=== PATIENT | female | born 1950 | race American Indian/Alaskan Native ===

== ENCOUNTER → 2016-12-26 | Outpatient (CLI) | payer MEDICARE ==
[2016-12-26 11:42] LABS: APPEARANCE,URINE SLIGHTLY CLOUDY; PROTEIN,URINE NEGATIVE (NEGATIVE)
[2016-12-26 11:43] LABS: BACTERIA,URINE FEW /HPF; KETONES,URINE NEGATIVE (NEGATIVE); LEUKOCYTE ESTERASE ,URINE 1+ (NEGATIVE); NITRITE,URINE NEGATIVE (NEGATIVE); RBC,URINE 0-2 /HPF (0 - 2); SQUAMOUS EPITHELIAL CELL,UR MODERATE /LPF (NONE/OCC); UROBILINOGEN,URINE NORMAL MG/DL (0.0-1.0)
[2016-12-26 11:44] LABS: BASOPHILS % (AUTO) 0.9 % (0.0-2.0); EOSINOPHILS % (AUTO) 0.9 % (0.0-3.0); HEMOGLOBIN A1C 5.2 % (< 6.0); LYMPHOCYTES % (AUTO) 23.7 % (20.0-45.0); MEAN CORPUSCULAR HEMOGLOBIN 30.2 PG (27.0-31.0); MEAN CORPUSCULAR HGB CONC 33.4 G/DL (32.0-36.0); MEAN CORPUSCULAR VOLUME 90 FL (80-99); MONOCYTES % (AUTO) 6.6 % (1.0-10.0); NEUTROPHILS % (AUTO) 67.9 % (45.0-75.0); PLATELET COUNT 285 K/UL (150-450); RED BLOOD COUNT 4.19 M/UL (4.20-5.40); RED CELL DISTRIBUTION WIDTH 12.2 % (11.6-14.8); WHITE BLOOD COUNT 8.7 K/UL (4.8-10.8)
[2016-12-26 11:52] LABS: ALANINE AMINOTRANSFERASE 9 U/L (3-33); ALBUMIN/GLOBULIN RATIO 1.1 (1.0-2.7); ANION GAP 15 (5-15); ASPARTATE AMINO TRANSFERASE 14 U/L (5-40); CALCIUM 9.6 mg/dL (8.6-10.2); CARBON DIOXIDE 25 mEQ/L (20-30); CHLORIDE 101 mEQ/L (98-107); CHOLESTEROL 171 mg/dL (< 200); CHOLESTEROL/HDL RATIO 2.2 (3.3-4.4); CREATININE 0.8 mg/dL (0.5-0.9); GLOMERULAR FILTRATION RATE > 60 mL/min (>60); HEMOLYSIS 3; LDL CHOLESTEROL (CALC.) 72 mg/dL (60-99); SODIUM 141 mEQ/L (135-145); TOTAL PROTEIN 7.9 g/dL (6.6-8.7)
== END | disposition home or self-care (01) ==
LOC: LAB 11:10
DX: I10 Essential (primary) hypertension (principal)
CPT/HCPCS: 36415; 80053; 80061; 81001; 83036; 84443; 85025

== ENCOUNTER 2019-04-08 08:34 | Day surgery (SDC) | payer MEDICARE ==
[2019-03-29 10:45] LABS: APPEARANCE,URINE CLEAR; BASOPHILS % (AUTO) 1.1 % (0.0-2.0); BILIRUBIN, URINE NEGATIVE (NEGATIVE); COLOR,URINE PALE YELLOW; EOSINOPHILS % (AUTO) 2.5 % (0.0-3.0); GLUCOSE, URINE (UA) NEGATIVE (NEGATIVE); HEMATOCRIT 38.6 % (37.0-47.0); HEMOGLOBIN 12.6 G/DL (12.0-16.0); KETONES,URINE NEGATIVE (NEGATIVE); LEUKOCYTE ESTERASE ,URINE 1+ (NEGATIVE); LYMPHOCYTES % (AUTO) 26.5 % (20.0-45.0); MEAN CORPUSCULAR VOLUME 90 FL (80-99); MONOCYTES % (AUTO) 8.2 % (1.0-10.0); NEUTROPHILS % (AUTO) 61.8 % (45.0-75.0); NITRITE,URINE NEGATIVE (NEGATIVE); PH,URINE 5 (4.5-8.0); PLATELET COUNT 267 K/UL (150-450); PROTEIN,URINE NEGATIVE (NEGATIVE); RED BLOOD COUNT 4.29 M/UL (4.20-5.40); RED CELL DISTRIBUTION WIDTH 12.6 % (11.6-14.8); UROBILINOGEN,URINE NORMAL MG/DL (0.0-1.0); WHITE BLOOD COUNT 6.5 K/UL (4.8-10.8)
[2019-03-29 10:57] LABS: ANION GAP 7 mmol/L (5-15); BLOOD UREA NITROGEN 24 mg/dL (7-18); CALCIUM 9.7 MG/DL (8.5-10.1); CARBON DIOXIDE 28 MMOL/L (21-32); CHLORIDE 106 MMOL/L (98-107); POTASSIUM 4.2 MMOL/L (3.5-5.1); SODIUM 141 MMOL/L (136-145)
--- NOTE | 2019-03-29 14:13 | Cardiology Report ---
APPROVED REPORT EKG Measurement Heart [id number] Sinus bradycardia Otherwise normal ECG
--- NOTE | 2019-04-05 17:30 | Pre-op HX & Phy Repo 2 SIG ---
DATE OF ADMISSION: 04/08/2019 SCHEDULED FOR OUTPATIENT SURGERY ON: 04/08/2019. HISTORY OF PRESENT ILLNESS: The patient is a 68-year-old female in stable health, who noticed a mass in the right breast in January of this year. Imaging studies showed a right breast mass with calcifications located in the lower outer quadrant at 8 o'clock, 6 cm from the nipple measuring 2.5 x 1.8 x 1.6 cm. Core biopsy revealed phyllodes tumor, borderline regarding benign versus malignant with the recommendation for excision with a wide margin. She has no prior history of breast disease. PAST MEDICAL HISTORY AND MEDICATIONS: Benazepril, spironolactone, diltiazem, all for hypertension, levothyroxine, and Singulair. ALLERGIES: Codeine. OPERATIONS: Cataract surgery. REVIEW OF SYSTEMS: 1, para 1. Last menstrual period at age 45. PHYSICAL EXAMINATION: VITAL SIGNS: The patient is 5 foot 3 inches, 215 pounds. HEENT: Within normal limits. LUNGS: Clear. HEART: Regular rhythm. BREASTS: Medium in size and ptotic. The left breast is unremarkable. The right breast has a mass measuring approximately 3 x 4 cm in the periphery of the lower outer quadrant of the right breast. There is no axillary, supraclavicular lymphadenopathy. ABDOMEN: Soft. PELVIC AND RECTAL: Per primary care. EXTREMITIES: Without edema. NEUROLOGIC: Physiologic. IMPRESSION: Right breast mass, phyllodes tumor, rule out malignant. PLAN: Wide excision of right breast mass under general anesthesia as an outpatient. I have had a full discussion with the patient regarding the nature of her condition, the nature of the surgery, indications, alternatives, options, and risks including bleeding, infection, recurrence, need for additional surgery or treatments based on final pathology, scarring or distortion of the breast or nipple, etc. All questions have been answered. She understands and agrees to proceed. Garcia Cruz M.D. DR: ISABELLE JOB#: [id number] CC:
[2019-04-08] VITALS (9 sets, daily range): BP systolic 116–152; BP diastolic 53–72
[~2019-04-08] VITALS: Ht 160 cm; Wt 94.8 kg
[2019-04-08] MEDS ORDERED: LEVOTHYROXINE75 MCG ORAL (09:00)
[2019-04-08] MEDS ORDERED: SPIRONOLACTONE25 MG ORAL (09:00)
[2019-04-08] MEDS ORDERED: CARTIA XT300 MG ORAL (09:00)
[2019-04-08] MEDS ORDERED: BENAZEPRIL HCL40 MG ORAL (09:00)
[2019-04-08] MEDS ORDERED: VITAMIN D22000 UNIT PO (09:00)
[2019-04-08] MEDS ORDERED: MONTELUKAST SOD10 MG ORAL (09:00)
[2019-04-08] MEDS ORDERED: Lidocaine 1% Plain 30 ml INJ ONE (09:06)
[2019-04-08] MEDS ORDERED: Bacitracin 50000 Units Vial ONE (09:06)
[2019-04-08] MEDS ORDERED: NeoSporin Gu Irrig 1ml Amp IRRIG ONE (09:06)
[2019-04-08] MEDS ORDERED: Bupivacaine 0.5% Inj 30 ml vial INJ ONE (09:06)
--- NOTE | 2019-04-08 09:07 | Pre-Procedure Note/Attestation ---
Pre-Procedure Note/Attestation Complete Prior to Procedure Planned Procedure: right Procedure Narrative: excision right breast mass Indications for Procedure Pre-Operative Diagnosis: right breast mass Attestation I attest that I discussed the nature of the procedure; its benefits; risks and complications; and alternatives (and the risks and benefits of such alternatives ), prior to the procedure, with the patient (or the patient's legal outside medical sales representative). I attest that, if there was a reasonable possibility of needing a blood transfusion, the patient (or the patient's legal outside medical sales representative) was given the [facility] standardized written summary, pursuant to the Jerzy Flovilla Blood Safety Act ([place] Health and Safety Code # 1645, as amended). I attest that I re-evaluated the patient just prior to the surgery and that there has been no change in the patient's H&P, except as documented below:none Garcia Cruz MD April 08, 2019 09:07
[2019-04-08] MEDS ORDERED: Lidocaine 1% MPF 10mg/ml 5ml ONE (09:13)
[2019-04-08] MEDS ORDERED: Propofol 200mg/20ml IV ONE (09:13)
[2019-04-08] MEDS ORDERED: fentaNYL 100 mcg/2 mL IV ONE (09:13)
[2019-04-08] MEDS ORDERED: Midazolam 2mg/2ml Inj ONE (09:13)
[2019-04-08] MEDS ORDERED: Ketorolac 30mg Inj ONE (09:13)
[2019-04-08] MEDS ORDERED: LR 1000ml ONE (09:30)
[2019-04-08] MEDS ORDERED: Rocuronium Bromide 50mg/5ml Inj IV ONE (09:30)
[2019-04-08] MEDS ORDERED: NS Irrig 1000ml ONE (09:30)
[2019-04-08] MEDS ORDERED: Sterile Water Irrig 1000ml IRRIG ONE (09:30)
[2019-04-08] MEDS ORDERED: Succinylcholine 20mg/ml 10ml vial ONE (09:30)
[2019-04-08] MEDS ORDERED: NS Irrig 1000ml IRRIG ONE (09:32)
[2019-04-08] MEDS ORDERED: LR 1000ml 1,000 ML IVLG SCH (10:11)
--- NOTE | 2019-04-08 10:11 | Anethesia Preoperative Eval ---
Anesthesia Pre-op PMH/ROS General Date of Evaluation: April 08, 2019 Time of Evaluation: 10:12 Anesthesiologist: Shannan ASA Score: ASA 3 Mallampati Score Class I : Soft palate, uvula, fauces, pillars visible Class II: Soft palate, uvula, fauces visible Class III: Soft palate, base of uvula visible Class IV: Only hard plate visible Mallampati Classification: Class III Surgeon: Anthony Diagnosis: R breast mass Surgical Procedure: Excision of R breast mass Anesthesia History: none Family History: no anesthesia problems Allergies: Coded Allergies: CODEINE (Verified Allergy, Severe, dizziness, nausea, vomiting, 04/08/19) Medications: see eMAR Patient NPO?: Yes Past Medical History Cardiovascular: Reports: HTN, other - Lover extremities varicoes veins; Denies: CAD, IA, valve dz, arrhythmia Pulmonary: Reports: ANGEL; Denies: asthma, COPD, other Gastrointestinal/Genitourinary: Reports: GERD; Denies: CRI, ESRD, other Neurologic/Psychiatric: Denies: dementia, CVA, depression/anxiety, TIA, other Endocrine: Reports: hypothyroidism; Denies: DM, steroids, other HEENT: Reports: cataract (L), cataract (R), glaucoma Hematology/Immune: Denies: anemia, DVT, bleeding disorder, other Musculoskeletal/Integumentary: Reports: DJD; Denies: OA, RA, DDD, edema, other Other: obesity PMH Narrative: as above PSxH Narrative: Bilateral cataracts Anesthesia Pre-op Phys. Exam Physician Exam Last Vital Signs Date Time Temp Pulse Resp B/P (MAP) Pulse Ox O2 Delivery O2 Flow Rate FiO2 04/08/19 09:05 Room Air 04/08/19 08:56 97.0 53 18 152/59 100 Constitutional: NAD Neurologic: CN 2-12 intact Cardiovascular: RRR, no M/R/G Respiratory: CTA Gastrointestinal: other - obesity Airway Exam Mallampati Score: Class III MO: limited Neck: short ROM: limited Teeth: missing Dentures: no upper, no lower Anesthesia Pre-op A/P Labs see chart Studies Pre-op Studies: EKG - NSR Risk Assessment & Plan Assessment: ASA 3 Plan: GA with ETT Status Change Before Surgery: No Pre-Antibiotics Drug: Ancef 1gr. Given Within 1 Hr of Incision: Yes Time Given: 09:54 Amandeep Campbell MD April 08, 2019 10:11
[2019-04-08] MEDS ORDERED: Neostigmine 1mg/ml 10ml Inj ONE (10:14)
[2019-04-08] MEDS ORDERED: Glycopyrrolate 0.2mg/ml 1ml Vial ONE (10:14)
[2019-04-08] MEDS ORDERED: Hydromorphone 0.5mg/0.5ml inj IVP PRN (10:15)
[2019-04-08] MEDS ORDERED: DiphenhydrAMINE 50mg/ml Inj IVP PRN (10:15)
[2019-04-08] MEDS ORDERED: HYDROmorphone 1mg/ml Carpuject SUBQ PRN (10:30)
[2019-04-08] MEDS ORDERED: HYDROcodone/Acetamin 5/325 tab ORAL PRN (10:30)
--- NOTE | 2019-04-08 10:32 | Brief Operative Note ---
Immediate Post Operative Note Operative Note Pre-op Diagnosis: right breast mass Procedure: excision right breast mass Post-op Diagnosis: same Post-op Diagnosis: same as pre-op Findings: consistent w/pre-op dx studies Surgeon: piter Anesthesiologist: jaylen Anesthesia: general Specimen: yes - right breast mass Complications: none Condition: stable Fluids: see anesthesia record Estimated Blood Loss: none Drains: none Implant(s) used?: No Garcia Cruz MD April 08, 2019 10:32
--- NOTE | 2019-04-08 10:45 | Immediate Post-Op Evaluation ---
Immediate Post-Op Evalulation Immediate Post-Op Evalulation Procedure: Excision of R breast mass Date of Evaluation: April 08, 2019 Time of Evaluation: 10:39 IV Fluids: 600 Blood Products: none Estimated Blood Loss: min Urinary Output: none Blood Pressure Systolic: 129 Blood Pressure Diastolic: 56 Pulse Rate: 58 Respiratory Rate: 22 O2 Sat by Pulse Oximetry: 98 Temperature (Fahrenheit): 97.5 Pain Score (1-10): 2 Nausea: No Vomiting: No Complications none Patient Status: reacts, patent, extubated, none Hydration Status: adequate Amandeep Campbell MD April 08, 2019 10:45
--- NOTE | 2019-04-08 12:55 | 48 Hour Post Anesthesia Eval ---
Post Anesthesia Evaluation Procedure: Excision of R breast mass Date of Evaluation: April 08, 2019 Time of Evaluation: 12:54 Blood Pressure Systolic: 148 0: 72 Pulse Rate: 68 Respiratory Rate: 22 Temperature (Fahrenheit): 97.6 O2 Sat by Pulse Oximetry: 98 Airway: patent Nausea: No Vomiting: No Pain Intensity: 2 Hydration Status: adequate Cardiopulmonary Status: stable Mental Status/LOC: patient returned to baseline Follow-up Care/Observations: n/a Post-Anesthesia Complications: none Follow-up care needed: ready to discharge Amandeep Campbell MD April 08, 2019 12:55
--- NOTE | 2019-04-08 14:00 | Operative Note - Dictated ---
DATE OF OPERATION: 04/08/2019 SURGEON: Garcia Cruz M.D. ENTREPRENEUR SURGEON: None. ANESTHESIOLOGIST: Amandeep Campbell M.D. TYPE OF ANESTHESIA: General. PREOPERATIVE DIAGNOSIS: Right breast mass, phyllodes tumor on core biopsy. POSTOPERATIVE DIAGNOSIS: Right breast mass, phyllodes tumor on core biopsy. OPERATION PERFORMED: Wide excision of right breast mass. DESCRIPTION OF PROCEDURE: The patient was taken to the operating room and under general anesthesia with sequential compression device stockings in place, she was prepped and draped in usual fashion. The lesion was located in the lower outer quadrant of the right breast at 8 o'clock between the areola and the periphery. A radial incision was made achieving hemostasis with cautery. Flaps were dissected circumferentially. The mass was gently grasped and resected with a margin of normal tissue around it instead of just enucleating the mass. Hemostasis was carefully achieved with cautery. The wound was irrigated. The hemostasis was secured. The specimen was oriented with suture markers anterior, superior, and medial and given to pathology. Incision was closed with interrupted 3-0 Vicryl deep dermal subcutaneous sutures followed by continuous 4-0 Monocryl subcuticular suture. Tincture of benzoin and half-inch Steri-Strips were applied followed by dry sterile dressing. Final sponge and needle counts were correct. The patient tolerated the procedure well and left the operating room in good condition. Garcia Cruz M.D. DR: CLARISA JOB#: [id number] CC:
== END 2019-04-08 12:00 | disposition home or self-care (01) ==
LOC: SUR 08:34
DX: N63.13 Unspecified lump in the right breast, lower outer quadrant (principal); R00.1 Bradycardia, unspecified; Z79.899 Other long term (current) drug therapy; I10 Essential (primary) hypertension; Z88.6 Allergy status to analgesic agent; G47.33 Obstructive sleep apnea (adult) (pediatric); K21.9 Gastro-esophageal reflux disease without esophagitis; E03.9 Hypothyroidism, unspecified; M19.90 Unspecified osteoarthritis, unspecified site; E66.9 Obesity, unspecified; Z68.37 Body mass index [BMI] 37.0-37.9, adult
CPT/HCPCS: 19120; 36415; 80048; 81003; 85025; 85610; 85730; 93005; J0330; J0690; J1885; J2001; J2250; J2704; J2710; J3010; 94003; 94150

== ENCOUNTER 2019-05-07 09:52 | Outpatient (CLI) | payer MEDICARE ==
[~2019-05-07 09:52] MED LIST: BENAZEPRIL HCL40 MG ORAL; CARTIA XT300 MG ORAL; LEVOTHYROXINE75 MCG ORAL; MONTELUKAST SOD10 MG ORAL; SPIRONOLACTONE25 MG ORAL; VITAMIN D22000 UNIT PO
[2019-05-07 10:50] LABS: EOSINOPHILS % (AUTO) 1.1 % (0.0-3.0); HEMATOCRIT 38.3 % (37.0-47.0); HEMOGLOBIN 12.8 G/DL (12.0-16.0); LYMPHOCYTES % (AUTO) 17.5 % (20.0-45.0); MEAN CORPUSCULAR VOLUME 89 FL (80-99); MONOCYTES % (AUTO) 5.1 % (1.0-10.0); NEUTROPHILS % (AUTO) 75.4 % (45.0-75.0); PLATELET COUNT 296 K/UL (150-450); RED BLOOD COUNT 4.33 M/UL (4.20-5.40); RED CELL DISTRIBUTION WIDTH 11.4 % (11.6-14.8); WHITE BLOOD COUNT 7.8 K/UL (4.8-10.8)
[2019-05-07 10:52] LABS: APPEARANCE,URINE CLOUDY; BILIRUBIN, URINE NEGATIVE (NEGATIVE); COLOR,URINE PALE YELLOW; GLUCOSE, URINE (UA) NEGATIVE (NEGATIVE); KETONES,URINE NEGATIVE (NEGATIVE); LEUKOCYTE ESTERASE ,URINE 3+ (NEGATIVE); NITRITE,URINE NEGATIVE (NEGATIVE); PH,URINE 5 (4.5-8.0); PROTEIN,URINE 1+ (NEGATIVE); UROBILINOGEN,URINE NORMAL MG/DL (0.0-1.0)
[2019-05-07 10:57] LABS: ANION GAP 11 mmol/L (5-15); BLOOD UREA NITROGEN 35 mg/dL (7-18); CALCIUM 9.9 MG/DL (8.5-10.1); CARBON DIOXIDE 23 MMOL/L (21-32); CHLORIDE 105 MMOL/L (98-107); CREATININE 1.2 MG/DL (0.55-1.30); POTASSIUM 5.2 MMOL/L (3.5-5.1); SODIUM 139 MMOL/L (136-145)
--- NOTE | 2019-05-07 16:00 | Cardiology Report ---
APPROVED REPORT EKG Measurement Heart [id number] 180P57 [id number] Sinus bradycardia Otherwise normal ECG
== END 2019-05-07 11:52 | disposition home or self-care (01) ==
LOC: RAD 09:52
DX: Z01.818 Encounter for other preprocedural examination (principal); R00.1 Bradycardia, unspecified
CPT/HCPCS: 36415; 80048; 81003; 85025; 85610; 85730; 87086; 87181; 93005

== ENCOUNTER 2019-05-20 07:55 | Inpatient (IN) | payer MEDICARE ==
--- NOTE | 2019-05-16 17:45 | Pre-op HX & Phy Repo 2 SIG ---
DATE OF ADMISSION: 05/20/2019 SCHEDULED FOR SURGERY: May 20, 2019. 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 The patient presented at the end of February 2019 with a mass of the right breast that she noticed one month earlier. Imaging studies revealed a mass with calcifications at 8 o'clock in the right breast 6 cm from the nipple measuring 2.5 x 1.8 x 1.6 cm. Core biopsy revealed a borderline phyllodes tumor. 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 Oncology evaluation confirmed that she has an aggressive sarcoma type lesion of the breast and that modified radical mastectomy is required. The patient has undergone PET-CT and CT scans. PAST MEDICAL HISTORY: MEDICATIONS: Benazepril, spironolactone, diltiazem all for hypertension, levothyroxine and Singulair ALLERGIES: Codeine. OPERATIONS: Cataract eye surgeries. REVIEW OF SYSTEMS: 1, para 1. Last menstrual period age 45. PHYSICAL EXAMINATION: VITAL SIGNS: The patient is 5 foot 3 inches, 213 pounds. Stable vital signs with slight systolic hypertension. HEENT: Within normal limits. LUNGS: Clear. HEART: Regular rhythm. BREASTS: Medium in size and slightly ptotic. There is a healing scar in the right lateral breasts. Radial incision at 9 o'clock with induration underneath it. ABDOMEN: Soft. PELVIC: Per primary care. RECTAL: Per primary care. EXTREMITIES: Without edema. NEUROLOGIC: Physiologic. IMPRESSION: Malignant cystosarcoma phyllodes, right breast. PLAN: Right modified radical mastectomy. I have had a full discussion with the patient regarding her condition, the nature of the surgery, indications, alternatives, options, and risks including bleeding, infection, injury to adjacent structures or organs, chest wall deformity, need for sampling of axillary lymph nodes, etc. Need for drains, need for potential additional treatments based on final pathology. All questions have been answered. She understands and agrees to proceed. Garcia Cruz M.D. DR: Selina JOB#: [id number] CC:
[~2019-05-20] VITALS: Ht 160 cm; Wt 93.9 kg
[2019-05-20] VITALS (16 sets, daily range): BP systolic 110–151; BP diastolic 41–102
[2019-05-20] MEDS ORDERED: Lidocaine 1% 10mg/ml/EPI 0.01mg/ml 50ml INJ ONE (09:01)
[2019-05-20] MEDS ORDERED: Bupivacaine w/Epi 0.5% 30ml Vial INJ ONE (09:01)
[2019-05-20] MEDS ORDERED: Bupivacaine 0.5% Inj 30 ml vial INJ ONE (09:01)
[2019-05-20] MEDS ORDERED: Bacitracin 50000 Units Vial ONE (09:02)
[2019-05-20 09:13] LABS: APPEARANCE,URINE SLIGHTLY CLOUDY; BILIRUBIN, URINE NEGATIVE (NEGATIVE); GLUCOSE, URINE (UA) NEGATIVE (NEGATIVE); KETONES,URINE NEGATIVE (NEGATIVE); LEUKOCYTE ESTERASE ,URINE 3+ (NEGATIVE); NITRITE,URINE NEGATIVE (NEGATIVE); PH,URINE 5 (4.5-8.0); PROTEIN,URINE NEGATIVE (NEGATIVE); UROBILINOGEN,URINE NORMAL MG/DL (0.0-1.0)
[2019-05-20 09:14] LABS: COLOR,URINE YELLOW
[2019-05-20] MEDS ORDERED: Dexamethasone 4mg/ml vial ONE (09:47)
[2019-05-20] MEDS ORDERED: Sodium Chloride 10ml vial INJ ONE (09:47)
[2019-05-20] MEDS ORDERED: Lidocaine 1% MPF 10mg/ml 5ml ONE (09:47)
--- NOTE | 2019-05-20 09:49 | Pre-Procedure Note/Attestation ---
Pre-Procedure Note/Attestation Complete Prior to Procedure Planned Procedure: right Procedure Narrative: right modified radical mastectomy Indications for Procedure Pre-Operative Diagnosis: sarcoma right breast/malignant phyllodes tumor Attestation I attest that I discussed the nature of the procedure; its benefits; risks and complications; and alternatives (and the risks and benefits of such alternatives ), prior to the procedure, with the patient (or the patient's legal outbound telemarketing representative). I attest that, if there was a reasonable possibility of needing a blood transfusion, the patient (or the patient's legal outbound telemarketing representative) was given the [facility] standardized written summary, pursuant to the Jerzy Pilar Blood Safety Act ([place] Health and Safety Code # 1645, as amended). I attest that I re-evaluated the patient just prior to the surgery and that there has been no change in the patient's H&P, except as documented below: none Garcia Cruz MD May 20, 2019 09:49
[2019-05-20] MEDS ORDERED: NS Irrig 1000ml ONE (10:00)
[2019-05-20] MEDS ORDERED: LR 1000ml ONE (10:00)
[2019-05-20] MEDS ORDERED: Sterile Water Irrig 1000ml IRRIG ONE (10:00)
[2019-05-20] MEDS ORDERED: Midazolam 2mg/2ml Inj ONE (10:05)
[2019-05-20] MEDS ORDERED: fentaNYL 100 mcg/2 mL IV ONE ×2 (10:05→12:09)
[2019-05-20] MEDS ORDERED: Lidocaine 1% Plain 30 ml INJ ONE (10:23)
[2019-05-20] MEDS ORDERED: Propofol 200mg/20ml IV ONE (10:31)
[2019-05-20] MEDS ORDERED: LR 1000ml 1,000 ML IVLG SCH (10:40)
[2019-05-20] MEDS ORDERED: Ketorolac 30mg Inj IV PRN ×2 (10:45)
[2019-05-20] MEDS ORDERED: Acetaminophen (Non formulary) 100 ML IV ONE (10:45)
[2019-05-20] MEDS ORDERED: Meperidine 50mg/ml Inj(FOR RIGORS ONLY) IVP PRN (10:45)
[2019-05-20] MEDS ORDERED: Midazolam 2mg/2ml Inj IVP PRN (10:45)
[2019-05-20] MEDS ORDERED: LORazepam Inj 2mg/ml 1ml IV PRN (10:45)
[2019-05-20] MEDS ORDERED: fentaNYL 100 mcg/2 mL IV PRN (10:45)
[2019-05-20] MEDS ORDERED: DiphenhydrAMINE 50mg/ml Inj IVP PRN (10:45)
[2019-05-20] MEDS ORDERED: Labetalol 5mg/ml 20ml vial IV PRN (10:45)
[2019-05-20] MEDS ORDERED: Atropine Sulfate 0.4mg/ml inj IVP PRN (10:45)
[2019-05-20] MEDS ORDERED: Metoclopramide 10mg/2ml Inj IVP PRN (10:45)
--- NOTE | 2019-05-20 10:45 | Anethesia Preoperative Eval ---
Anesthesia Pre-op PMH/ROS General Date of Evaluation: May 20, 2019 Time of Evaluation: 09:36 Anesthesiologist: Cecil ASA Score: ASA 3 Mallampati Score Class I : Soft palate, uvula, fauces, pillars visible Class II: Soft palate, uvula, fauces visible Class III: Soft palate, base of uvula visible Class IV: Only hard plate visible Mallampati Classification: Class III Surgeon: Anthony Diagnosis: Malignant cystosarcoma phyllodes, Right breast. Surgical Procedure: Right Modified Radical Mastectomy Anesthesia History: none Family History: no anesthesia problems Allergies: Coded Allergies: CODEINE (Verified Allergy, Severe, dizziness, nausea, vomiting, 04/08/19) Medications: see eMAR Patient NPO?: Yes Past Medical History Cardiovascular: Reports: HTN Endocrine: Reports: hypothyroidism Hematology/Immune: Reports: other - R Breast CA Other: obesity - BMI 38 Anesthesia Pre-op Phys. Exam Physician Exam Last Vital Signs Date Time Temp Pulse Resp B/P (MAP) Pulse Ox O2 Delivery O2 Flow Rate FiO2 05/20/19 08:53 Room Air 05/20/19 08:35 96.6 57 20 136/45 100 Constitutional: NAD Neurologic: CN 2-12 intact Cardiovascular: RRR Respiratory: CTA Gastrointestinal: S/NT/ND Airway Exam Mallampati Score: Class III MO: limited ROM: limited Teeth: missing, intact Anesthesia Pre-op A/P Risk Assessment & Plan Assessment: ASA 3 Plan: GA, SED Status Change Before Surgery: No Pre-Antibiotics Dru Gram Ancef IV Given Within 1 Hr of Incision: Yes Time Given: 10:11 Simone Jacob MD May 20, 2019 10:45
--- NOTE | 2019-05-20 10:56 | Immediate Post-Op Evaluation ---
Immediate Post-Op Evalulation Immediate Post-Op Evalulation Procedure: Right Modiied Radical Mastectomy Date of Evaluation: May 20, 2019 Time of Evaluation: 12:37 IV Fluids: 700 LR Blood Products: 0 Estimated Blood Loss: 25 Urinary Output: 0 Blood Pressure Systolic: 148 Blood Pressure Diastolic: 56 Pulse Rate: 51 Respiratory Rate: 16 O2 Sat by Pulse Oximetry: 100 Temperature (Fahrenheit): 97 Pain Score (1-10): 2 Nausea: No Vomiting: No Complications 0 Patient Status: awake, reacts, patent, extubated, none Hydration Status: adequate Dru Gram Ancef IV Given Within 1 Hr of Incision: Yes Time Given: 10:11 Simone Jacob MD May 20, 2019 10:56
[2019-05-20] MEDS ORDERED: HYDROmorphone 1mg/ml Carpuject SUBQ PRN (12:15)
[2019-05-20] MEDS ORDERED: HYDROcodone/Acetamin 5/325 tab ORAL PRN (12:15)
--- NOTE | 2019-05-20 12:24 | Brief Operative Note ---
Immediate Post Operative Note Operative Note Pre-op Diagnosis: sarcoma right breast/malignant phyllodes tumor Procedure: right modified radical mastectomy Post-op Diagnosis: same Post-op Diagnosis: same as pre-op Findings: consistent w/pre-op dx studies Surgeon: piter Anesthesiologist: allison Anesthesia: general Specimen: yes - right breast and axillary lymph nodes Complications: none Condition: stable Fluids: see anesthesia record Estimated Blood Loss: minimal Drains: other - STEPHEN drains x 2 Implant(s) used?: No Garcia Cruz MD May 20, 2019 12:24
--- NOTE | 2019-05-20 14:00 | NUR ---
NURSE NOTES:RECEIVED FR. PACU BY BED S/P RIGHT RADICAL MODIFIED MASTECTOMY UNDER GENERAL ANESTHESIA,AWAKE A/OX4,MOVING EXTREMITIES SPONTANEOUSLY,WITH 2 LITERS N/C.SURGICAL DRESSING C/D/I.WITH 2 JPS COMPRESSED AND DRAINING S/S OUTPUT.IV SITE PATENT NO C/O PAIN.PLAN OF CARE DISCUSSED AND UNDERSTOOD.
--- NOTE | 2019-05-20 15:33 | NUR ---
NURSE NOTES:ASSISTED TO BATHROOM VOIDED.
[2019-05-20] MEDS ORDERED: Montelukast 10mg tablet ORAL PRN (16:15)
[2019-05-20] MEDS: D5 1/2NS w/KCl 20mEq 1,000 ML IV SCH (16:24)
--- NOTE | 2019-05-20 17:07 | NUR ---
NURSE NOTES:SEEN BY DR. SMITH,UPDATED RE:CURRENT VITAL SIGNS.
[2019-05-20] MEDS: ceFAZolin sod 1 GM in D5W 55 ML IV SCH (18:34)
--- NOTE | 2019-05-20 19:17 | NUR ---
HAND-OFF: Report given to DEON HOLLIDAY.PATIENT STABLE.
--- NOTE | 2019-05-20 19:25 | NUR ---
NURSE NOTES: Report taken from MIYA Dutton. Patient is awake and in bed, A&Ox4. Family at bedside. No signs of distress on room air. Patient states that she is having very minimal pain, 2/10. IV site c/d/i and patent, running D51/2NS + 20KCl at 100 mls/hr. Surgical incision c/d/i, no staining. STEPHEN drains #1/#2 c/d/i and patent, both draining serosanguineous fluid. Continue to drain as needed. Patient does have some bruising/ecchomysis on her left shoulder and chin, she dropped a mattress yesterday.
--- NOTE | 2019-05-20 21:45 | Operative Note - Dictated ---
DATE OF OPERATION: 05/20/2019 SURGEON: Greg Cruz M.D. WEATHERIZATION OPERATIONS MANAGER: None. ANESTHESIOLOGIST: Simone Jacob M.D. TYPE OF ANESTHESIA: General. PREOPERATIVE DIAGNOSIS: Sarcoma, right breast, malignant phyllodes tumor. POSTOPERATIVE DIAGNOSIS: Sarcoma, right breast, malignant phyllodes tumor. OPERATION PERFORMED: Right modified radical mastectomy. INDICATIONS: The patient underwent surgery 04/08/2019 to excise a phyllodes tumor in the right outer breast, which on core biopsy was borderline despite an excision with wide margins. Pathology revealed malignant phyllodes tumor with bone formation extending to the margins and DCIS. The patient was seen by Oncology and agreed to undergo right modified radical mastectomy. DESCRIPTION OF PROCEDURE: The patient was taken to the operating room and under general anesthesia with sequential compression device stockings and Matthews catheter in place, she was prepped and draped in the usual fashion. A transverse Carson type incision was made circumscribing the areola and the incision in the right outer breast. Flaps were dissected to the sternum medially, clavicle superiorly, costal margin inferiorly, and latissimus dorsi laterally. The breast was resected, taking the pectoralis fascia achieving hemostasis with cautery and the Thunderbeat electrosurgical device. The lower level axillary dissection was performed in continuity using the Thunderbeat electrosurgical device. Through separate stab incisions inferiorly, 2 large flat STEPHEN drains were placed, 1 in to the axilla, 1 under the flaps, each sutured to the skin with a 2-0 nylon skin suture. The field was copiously irrigated and hemostasis carefully secured with cautery. The incision was closed with interrupted 3-0 Vicryl deep dermal subcutaneous sutures followed by renate. Dry sterile dressings were applied. Final sponge and needle counts were correct. The pathologist inspected the tissue for margins, which were clear. The patient tolerated the procedure well and left the operating room in good condition. Garcia Cruz M.D. DR: MYRA JOB#: [id number] CC:
[2019-05-21] VITALS: BP 133/56
[2019-05-21] MEDS: D5 1/2NS w/KCl 20mEq 1,000 ML IV SCH ×2 (01:00→02:47)
[2019-05-21] MEDS: ceFAZolin sod 1 GM in D5W 55 ML IV SCH (02:48)
[2019-05-21 04:00] VITALS: BP 124/58
--- NOTE | 2019-05-21 06:18 | NUR ---
NURSE NOTES: Patient had a good night. No complaints of pain. She did state that she felt very stiff through the right UE. STEPHEN Drains patent, shift totals below. Drain #1: 20cc Drain #2: 85cc
--- NOTE | 2019-05-21 07:06 | NUR ---
NURSE NOTES:report given by cesar beebe.bedside rounds done,patient awake,in good spirit,no c/o pain,2 jps compressed and draining to s/s output.tolerating adequate po intake.will continue plan of care.
--- NOTE | 2019-05-21 07:11 | NUR ---
HAND-OFF: Report given to MIYA Dutton. Patient is awake and seated at bedside. IV stopped, hep locked. VS stable.
[2019-05-21 08:00] VITALS: BP 122/49
[2019-05-21] MEDS: dilTIAZem HCl CD 180mg cap ORAL SCH (08:26)
[2019-05-21] MEDS: dilTIAZem HCl CD 120mg cap ORAL SCH (08:27)
[2019-05-21] MEDS: Spironolactone 25mg tab ORAL SCH (08:27)
--- NOTE | 2019-05-21 08:47 | NUR ---
NURSE NOTES:pt was provided with teaching re:robby drain and.recording output,with good return demo.
[2019-05-21] MEDS ORDERED: dilTIAZem HCl CD 180mg cap ORAL SCH (09:00)
--- NOTE | 2019-05-21 10:00 | NUR ---
NURSE NOTES:AMBULATED IN HALLWAY WITH STAFF MEMBER ASSIST,TOLERATED ACTIVITY,ADMITTED WITH SOME BRUISING/ECCHYMOSIS ON LEFT UPPER ARM AND CHIN.(PT CLAIMED MATTRESS FELL ON HER WHILE SHE WAS TRYING TO CARRY).
--- NOTE | 2019-05-21 11:41 | NUR ---
CASE MANAGEMENT: INITIAL REVIEW 68 YO F PRESENTED TO HOSPITAL FOR SURGERY CC: BREAST CA PMHx: HTN. SI:SARCOMA RIGHT BREAST T 96.6 HR 57 RR 20 B/P 136/45 SATS 100% ON RA LABS: URINE (2+ BLOOD, 3+ LEUKS, RBCS, WBCs, MOD SQUAMOUS EPITH CELLS) IS: OR MEDS PATIENT ADMITTED TO MED/SURG 05/20/2019 @ 1215 DCP: PATIENT TO BE DISCHARGED TO HOME ONCE MEDICALLY CLEARED. PLAN OF CARE: Pre-op Diagnosis: sarcoma right breast/malignant phyllodes tumor Procedure: right modified radical mastectomy Post-op Diagnosis: same 05/21/2019 SI:SARCOMA RIGHT BREAST T 97.7 HR 55 RR 17 B/P 122/49 SATS 99% ON RA NO LABS TODAY IS: LOTENSIN PO QD ALDACTONE PO QD CARDIZEM PO QD SYNTHROID PO QD MED/SURG STATUS DCP: PATIENT TO BE DISCHARGED TO HOME ONCE MEDICALLY CLEARED. PLAN OF CARE: MONITOR STEPHEN DRAINS Addendum: 05/22/19 at 1227 by Iris Ureña CM INTERQUAL MET
[2019-05-21 12:00] VITALS: BP 130/49
--- NOTE | 2019-05-21 12:25 | NUR ---
NURSE NOTES:SEEN BY DR. SMITH,MADE AWARE RE:HR.40,BP:130/49,PT.INFORMED MD.THAT SHES FEELING DIZZY.ORDERS CARRIED OUT.
--- NOTE | 2019-05-21 12:28 | General Progress Note ---
Progress Note Progress Note Afebrile; bradycardia with mild lightheaded feeling with ambulation. right mastectomy incision clean and dry with STEPHEN drains 15+85 serosang Voiding qs Not needing analgesics Imp. Lightheaded/dizziness with ambulation Moderate STEPHEN drainage from modified radical mastectomy Plan: Hold diltiazem Maintain in hospital for monitoring Teach re care of STEPHEN drains labs in AM Garcia Cruz MD May 21, 2019 12:28
[2019-05-21 16:00] VITALS: BP 143/56
--- NOTE | 2019-05-21 16:00 | NUR ---
NURSE NOTES:RESTING QUIETLY,NAD.
--- NOTE | 2019-05-21 17:00 | NUR ---
NURSE NOTES:PT.EMPTIED 2 JPS WITH RN. SUPERVISION.NO C/O PAIN/DIZZINESS.D/C PLAN IN AM.
--- NOTE | 2019-05-21 19:20 | NUR ---
HAND-OFF: Report given to NIKOLAI HOLLIDAY.PATIENT STABLE.
--- NOTE | 2019-05-21 19:30 | NUR ---
NURSE NOTES: Received a report from MIYA Dutton. Done rounds. Pt is awake and alert. No acute distress noted. 2 JPs inserted stated and drained with serosanguineous color. Dressing site is clear without bleeding signs. IV site left hand H/L is clear without infiltration. Leave call light within reach. Will continue to monitor.
[2019-05-21 20:00] VITALS: BP 118/74
--- NOTE | 2019-05-21 21:30 | NUR ---
NURSE NOTES: Breathing is even and non labored. No acute distress noted. OP site pain 5/10. Advise to take pain medication but pt refuses despite explanation for taking pain medication after surgery. Encourage to I/S every hour while awake. Leave call light within reach. Bed is locked and lowest. Will continue to monitor.
[2019-05-22] VITALS: BP 136/78
[2019-05-22 04:30] VITALS: BP 101/66
--- NOTE | 2019-05-22 06:00 | NUR ---
NURSE NOTES: Pt got some sleep and denies pain. Pt demonstrates to empty JPs by herself under supervision. Performs well. Emptied out STEPHEN 1 2ml and STEPHEN 2 18ml with serosanguineous. HR was 48bmp without dizziness or dyspnea. MD aware of bradycardia. Will continue to monitor.
[2019-05-22 06:36] LABS: ANION GAP 9 mmol/L (5-15); BLOOD UREA NITROGEN 35 mg/dL (7-18); CALCIUM 9.3 MG/DL (8.5-10.1); CARBON DIOXIDE 19 MMOL/L (21-32); CHLORIDE 108 MMOL/L (98-107); CREATININE 1.2 MG/DL (0.55-1.30); SODIUM 137 MMOL/L (136-145)
[2019-05-22 06:38] LABS: POTASSIUM 6.7 MMOL/L (3.5-5.1)
[2019-05-22 06:51] LABS: BASOPHILS % (AUTO) 0.4 % (0.0-2.0); EOSINOPHILS % (AUTO) 0.3 % (0.0-3.0); HEMATOCRIT 31.9 % (37.0-47.0); HEMOGLOBIN 10.5 G/DL (12.0-16.0); LYMPHOCYTES % (AUTO) 17.5 % (20.0-45.0); MEAN CORPUSCULAR VOLUME 92 FL (80-99); MONOCYTES % (AUTO) 5.4 % (1.0-10.0); NEUTROPHILS % (AUTO) 76.4 % (45.0-75.0); PLATELET COUNT 225 K/UL (150-450); RED BLOOD COUNT 3.46 M/UL (4.20-5.40); RED CELL DISTRIBUTION WIDTH 11.5 % (11.6-14.8); WHITE BLOOD COUNT 10.8 K/UL (4.8-10.8)
--- NOTE | 2019-05-22 06:55 | NUR ---
NURSE NOTES: Received a call from Tha gray, that Potassium level was critically high as 6.7. Called Dr. Cruz and left a message. Waiting for call back.
--- NOTE | 2019-05-22 07:05 | NUR ---
NURSE NOTES: Receive a call from Dr. Cruz and obtain a order to recheck BMP stat. Order noted and carried out. Will update for result.
[2019-05-22 07:34] LABS: ANION GAP 10 mmol/L (5-15); BLOOD UREA NITROGEN 34 mg/dL (7-18); CALCIUM 9.6 MG/DL (8.5-10.1); CARBON DIOXIDE 19 MMOL/L (21-32); CHLORIDE 108 MMOL/L (98-107); CREATININE 1.2 MG/DL (0.55-1.30); SODIUM 137 MMOL/L (136-145)
--- NOTE | 2019-05-22 07:35 | NUR ---
HAND-OFF: Report given to MIYA Francois. Sandra Rios, called the result for Potassium lab: 6.2. Endorse to Priscila to contact MD regarding critical lab value.
[2019-05-22 07:36] LABS: POTASSIUM 6.2 MMOL/L (3.5-5.1)
--- NOTE | 2019-05-22 07:45 | NUR ---
NURSE NOTES: Received report from Gho RN. Patient is awake alert and oriented x4, no acute distress noted, reporting no pain. 2 STEPHEN's compressed, serosanguinous output noted, dressing clean, dry, intact. Patient updated on plan of care for the day. Side rails upx2, bed low and locked, call light in reach. Will continue to monitor.
[2019-05-22 08:00] VITALS: BP 137/64
[2019-05-22] MEDS ORDERED: D5 1/2NS 1,000 ML IV SCH (08:15)
--- NOTE | 2019-05-22 08:15 | NUR ---
NURSE NOTES: Received call back from Dr. Cruz regarding critical high potassium of 6.2. Orders received and entered. Will continue to monitor.
[2019-05-22] MEDS: Spironolactone 25mg tab ORAL SCH (09:00)
[2019-05-22] MEDS: dilTIAZem HCl CD 180mg cap ORAL SCH (09:00)
[2019-05-22] MEDS: dilTIAZem HCl CD 120mg cap ORAL SCH (09:00)
[2019-05-22] MEDS ORDERED: Sodium Polystyrene Sulfonate 15gm Powder ORAL SCH (11:30)
--- NOTE | 2019-05-22 11:57 | Consultation ---
Consult Note Assessment/Plan dictated # [id number] Oz Noguera MD May 22, 2019 11:57
[2019-05-22 12:00] VITALS: BP 145/64
[2019-05-22] MEDS ORDERED: Insulin Human Regular 100units/ml 3ml IV SCH (12:00)
[2019-05-22] MEDS ORDERED: Calcium Gluconate 1gm/10ml vial IVP SCH (12:00)
--- NOTE | 2019-05-22 12:18 | NUR ---
HAND-OFF: Report given to Shell HOLLIDAY in telemetry. Endorsed orders for calcium gluconate, insulin and dextrose.
[2019-05-22] MEDS: D5 1/2NS 1,000 ML IV SCH ×2 (12:30→20:53)
[2019-05-22] MEDS ORDERED: HYDROmorphone 1mg/ml Carpuject SUBQ PRN (12:30)
[2019-05-22] MEDS ORDERED: HYDROcodone/Acetamin 5/325 tab ORAL PRN (12:30)
--- NOTE | 2019-05-22 12:40 | NUR ---
NURSE NOTES: Patient transferred safely to floor from . Report received from MIYA Francois. Pt is lying comfortable in semi-fowlers with no signs of distress. No pain/SOB. IV site is patent and intact
--- NOTE | 2019-05-22 12:45 | NUR ---
NURSE NOTES: Pt is sinus evgeny on the monitor, as low at [address] Sean Noguera to verify safety of administration of calcium gluconate as it can lower heart rate. Dr. Noguera said "it is the treatment for hyperkalemia. Why would you call me about side effects of the medication. The patient needs this medication." Will give medications immediately as it is a STAT order.
--- NOTE | 2019-05-22 14:18 | NUR ---
NURSE NOTES: J-tubes drains are measured and discarded. Both are serosanguineous. Tube 1 drained about 10cc, tube 2 drained 50cc. J-tubes are deflated back after drained and closed. Surgical sites look dry and intact, no wetness on the site or on the dressing.
--- NOTE | 2019-05-22 15:27 | Cardiology Report ---
APPROVED REPORT EKG Measurement Heart [id number] Sinus bradycardia Otherwise normal ECG
[2019-05-22 16:00] VITALS: BP 148/57
[2019-05-22] MEDS ORDERED: Montelukast 10mg tablet ORAL PRN (16:15)
--- NOTE | 2019-05-22 16:46 | General Progress Note ---
Progress Note Progress Note Afebrile, persistent bradycardia. Feels okay. This AM K 6.3 Dr. Noguera called and patient transferred to telemetry Right mastectomy incision clean and dry JPs 10+55 serosang Imp. Bradycardia and hyperkalemia Plan: per Dr. Noguera RNs to teach patient care of STEPHEN drains Garcia Cruz MD May 22, 2019 16:46
[2019-05-22 17:13] LABS: ANION GAP 8 mmol/L (5-15); BLOOD UREA NITROGEN 34 mg/dL (7-18); CALCIUM 9.3 MG/DL (8.5-10.1); CARBON DIOXIDE 22 MMOL/L (21-32); CHLORIDE 110 MMOL/L (98-107); CREATININE 1.3 MG/DL (0.55-1.30); POTASSIUM 5.7 MMOL/L (3.5-5.1); SODIUM 140 MMOL/L (136-145)
--- NOTE | 2019-05-22 17:15 | Consultation ---
DATE OF CONSULTATION: 05/22/2019 NEPHROLOGY CONSULTATION CONSULTING PHYSICIAN: Oz Noguera M.D. REFERRING PHYSICIAN: Garcia Cruz M.D. REASON FOR CONSULTATION: Hyperkalemia. HISTORY OF PRESENT ILLNESS: This is a very pleasant 68-year-old, female, who I am following as her PCP in my office. She was recently diagnosed with breast cancer. Initially she had partial mastectomy done. It revealed that she had borderline phyllodes tumor. 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 The patient was supposed to go home today but then she was found to have a potassium 6.7 with BUN of 35, creatinine 1.2. Repeat potassium 6.2, BUN 34, creatinine 1.2. PAST MEDICAL HISTORY: Includes history of hypertension. The patient has been intolerance to couple of medications including amlodipine so blood pressure medications had to be switched around. SOCIAL HISTORY: No history of smoking or alcohol abuse. ALLERGIES: No known drug allergies. REVIEW OF SYSTEMS: Noncontributory. PHYSICAL EXAMINATION: GENERAL: The patient is a pleasant female, in no acute distress. VITAL SIGNS: Blood pressure is 137/64, pulse 57, temperature 97.2. HEENT: Somewhat pale conjunctivae. Anicteric sclerae. NECK: Supple. LUNGS: Clear to auscultation. CHEST: The patient is status post right breast mastectomy. ABDOMEN: Soft and nontender. EXTREMITIES: Bilateral pedal edema. LABORATORY FINDINGS: CBC shows WBC of 10.8, hematocrit is 31.9 hemoglobin is 10.5, and platelet is 225,000. The chemistry panel shows a serum sodium of 137, potassium 6.2, chloride 108, CO2 19, BUN 34, creatinine 1.2, glucose of 91, calcium is 9.6. UA as of 05/20/2019 showed 5 to 10 wbc's per high-power field. ASSESSMENT: This is a 68-year-old female, who was admitted after right-sided mastectomy. She has developed significant hyperkalemia and combination of several factors. She has some diminished renal failure on the top that, she was on Aldactone and benazepril and additionally she was given IV fluids with addition of potassium. PLAN: The patient will be given Kayexalate 60 gram p.o. I just did an EKG, the patient is somewhat bradycardic, peaked T-waves so I would give additionally IV calcium, D50 and insulin. The patient will be transferred to telemetry. Repeat BMP will be done four hours after Kayexalate was given. Further recommendations will be given based on hospital course and findings. Thank you very much, Dr. Cruz, for this consultation. Oz Noguera M.D. DR: Marlys JOB#: [id number] CC: UNIQUE
--- NOTE | 2019-05-22 17:22 | NUR ---
NURSE NOTES: Left message with Dr. Noguera regarding new potassium level of 5.7; awaiting response.
--- NOTE | 2019-05-22 18:27 | NUR ---
NURSE NOTES: Drained out J-tubes, 5cc in J-tube 1 and 25cc in J-tube 2. Color is still serosanguineous. Dr. Almanza came in to change her dressing.
--- NOTE | 2019-05-22 18:56 | NUR ---
NURSE NOTES: Dr. Noguera aware of potassium of 5.7; only new order was AM BMP. Already ordered by Dr. Cruz.
--- NOTE | 2019-05-22 19:04 | NUR ---
HAND-OFF: Report given to MIYA Montelongo. Pt is in stable condition; plan of care endorsed.
--- NOTE | 2019-05-22 19:23 | NUR ---
NURSE NOTES: Report received from MIYA Goff. Pt is in stable condition and lying comfortably in bed. Bed in the lowest position, bed brakes engaged, side rails up x3 with call light within reach. Will continue to monitor.
[2019-05-22 20:00] VITALS: BP 135/56
[2019-05-23] VITALS: BP 146/61
[2019-05-23 04:00] VITALS: BP 152/64
[2019-05-23 06:40] LABS: BASOPHILS % (AUTO) 1.5 % (0.0-2.0); EOSINOPHILS % (AUTO) 2.4 % (0.0-3.0); HEMATOCRIT 35.4 % (37.0-47.0); HEMOGLOBIN 11.7 G/DL (12.0-16.0); LYMPHOCYTES % (AUTO) 40.6 % (20.0-45.0); MEAN CORPUSCULAR VOLUME 92 FL (80-99); MONOCYTES % (AUTO) 7.7 % (1.0-10.0); NEUTROPHILS % (AUTO) 47.8 % (45.0-75.0); PLATELET COUNT 225 K/UL (150-450); RED BLOOD COUNT 3.84 M/UL (4.20-5.40); RED CELL DISTRIBUTION WIDTH 11.3 % (11.6-14.8); WHITE BLOOD COUNT 7.9 K/UL (4.8-10.8)
[2019-05-23 06:50] LABS: ANION GAP 11 mmol/L (5-15); BLOOD UREA NITROGEN 32 mg/dL (7-18); CALCIUM 9.5 MG/DL (8.5-10.1); CARBON DIOXIDE 21 MMOL/L (21-32); CHLORIDE 111 MMOL/L (98-107); CREATININE 1.1 MG/DL (0.55-1.30); POTASSIUM 5.2 MMOL/L (3.5-5.1); SODIUM 143 MMOL/L (136-145)
--- NOTE | 2019-05-23 07:18 | NUR ---
HAND-OFF: Report given to MIYA Gallego. Plan of care endorsed.
--- NOTE | 2019-05-23 07:18 | NUR ---
NURSE NOTES: Report received from Jayda HOLLIDAY. pt AOX4 in bed. No c/o pain at this time. Per patient, [place] helps for her pain well. Bed in lowest position and locked. IV site in L hand 20G running with D5 1/2NS@100ml/hr and intact and asymptomatic. STEPHEN drainages #1 and #2 are intact and patent. Rhythm with SR reported during last night. Will continue to plan of care.
[2019-05-23 08:00] VITALS: BP 147/65
[2019-05-23] MEDS ORDERED: dilTIAZem HCl CD 120mg cap ORAL SCH (09:00)
[2019-05-23] MEDS ORDERED: dilTIAZem HCl CD 180mg cap ORAL SCH (09:00)
[2019-05-23] MEDS: D5 1/2NS 1,000 ML IV SCH (09:14)
--- NOTE | 2019-05-23 10:15 | General Progress Note ---
Progress Note Progress Note AVSS STill with bradycardia but ambulating right mastectomy incision clean and dry. STEPHEN drains 85cc + 50cccombined/12 hours - serosang Imp. Stable re surgery Plan: discharge per Dr. Noguera Given Rx for [place] /325 #30 Instructions/limitations/supplies provided/discussed F/U office 05/28 to remove drains Garcia Cruz MD May 23, 2019 10:15
[2019-05-23 12:00] VITALS: BP 132/76
[2019-05-23] MEDS ORDERED: Insulin Human Regular 100units/ml 3ml IV SCH (12:00)
[2019-05-23] MEDS ORDERED: Calcium Gluconate 1gm/10ml vial IVP SCH (12:00)
[2019-05-23] MEDS ORDERED: NORCO 5-325 TA1 EACH ORAL (13:49)
--- NOTE | 2019-05-23 13:53 | Nephrology Progress Note ---
Assessment/Plan Problem List: (1) CKD (chronic kidney disease) (2) Hyperkalemia Assessment: better (3) Breast cancer (4) HTN (hypertension) Assessment: ok Plan cont cardizem No Aldactone or Acosta inhibitors DC today Discussed with RN Subjective Subjective feels ok Objective Objective Last 24 Hour Vital Signs Date Time Temp Pulse Resp B/P (MAP) Pulse Ox O2 Delivery O2 Flow Rate FiO2 05/23/19 12:00 63 05/23/19 12:00 97.3 65 21 132/76 (94) 98 05/23/19 09:00 Room Air 05/23/19 08:45 54 147/65 05/23/19 08:43 54 147/65 05/23/19 08:00 46 05/23/19 08:00 97.7 54 21 147/65 (92) 99 05/23/19 04:00 49 05/23/19 04:00 98.0 68 20 152/64 (93) 99 05/23/19 01:42 98.0 05/23/19 00:00 60 05/23/19 00:00 97.9 66 20 146/61 (89) 98 05/22/19 21:00 Room Air 05/22/19 20:00 57 05/22/19 20:00 98.0 58 20 135/56 (82) 97 05/22/19 16:00 53 05/22/19 16:00 98.3 87 17 148/57 (87) 100 Intake and Output 05/22/19 05/23/19 19:00 07:00 Intake Total 1240 ml Output Total 85 ml 50 ml Balance 1155 ml -50 ml Intake Oral 940 ml IV Total 300 ml Output Drainage Total 85 ml 50 ml # Voids 3 2 Laboratory Tests 05/22/19 16:48: Sodium Level 140, Potassium Level 5.7H, Chloride Level 110H, Carbon Dioxide Level 22, Anion Gap 8, Blood Urea Nitrogen 34H, Creatinine 1.3, Estimat Glomerular Filtration Rate 40.7, Glucose Level 118H, Calcium Level 9.3 05/23/19 05:55: Sodium Level 143, Potassium Level 5.2H, Chloride Level 111H, Carbon Dioxide Level 21, Anion Gap 11, Blood Urea Nitrogen 32H, Creatinine 1.1, Estimat Glomerular Filtration Rate 49.4, Glucose Level 91, Calcium Level 9.5, White Blood Count 7.9, Red Blood Count 3.84L, Hemoglobin 11.7L, Hematocrit 35.4L, Mean Corpuscular Volume 92, Mean Corpuscular Hemoglobin 30.3, Mean Corpuscular Hemoglobin Concent 33.0, Red Cell Distribution Width 11.3L, Platelet Count 225, Mean Platelet Volume 6.4L, Neutrophils (%) (Auto) 47.8, Lymphocytes (%) (Auto) 40.6, Monocytes (%) (Auto) 7.7, Eosinophils (%) (Auto) 2.4, Basophils (%) (Auto ) 1.5 Height (Feet): 5 Height (Inches): 3.00 Weight (Pounds): 207 Cardiovascular: normal rate Respiratory/Chest: lungs clear Oz Noguera MD May 23, 2019 13:53
--- NOTE | 2019-05-23 14:50 | NUR ---
Discharge: Patient is being discharged from medical care. Awake, alert and oriented x4. After care instructions, including referral to community resources were given. Explained all meds such as meds to be stopped and new meds to be started. Patient verbalized understanding of After care instructions and meds; at this time patient does not request, equipment or placement. patient may discharge to home with family members by private car. Also reinforced to follow up the surgeon next week as scheduled and instructed the patient how to charge dressing and how to empty STEPHEN bag safety. Patient signed patient consent in the medical record for patient destination upon discharge. All medical devices such as plate glass grinder, IV and ID band were removed. Patient ambulated out with all personal belongings with steady gait with family member and nurse assisted the pt to the car.
--- NOTE | 2019-05-24 08:44 | Discharge Summary ---
Discharge Summary Discharge Summary _ DATE OF ADMISSION: 05/20/2019 DATE OF DISCHARGE: 05/23/2019 DISCHARGED BY: Dr. Garcia Cruz CONSULTANTS: Dr. 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 The patient presented at the end of February 2019 with a mass of the right breast that she noticed one month earlier. Imaging studies revealed a mass with calcifications at 8 o'clock in the right breast 6 cm from the nipple measuring 2.5 x 1.8 x 1.6 cm. Core biopsy revealed a borderline phyllodes tumor. 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 Oncology evaluation confirmed that she has an aggressive sarcoma type lesion of the breast and that modified radical mastectomy is required. The patient has undergone PET-CT and CT scans. BRIEF HOSPITAL COURSE: Patient was admitted on 05/20/2019 and underwent right modified radical mastectomy. There were 2 large STEPHEN drains placed. Patient tolerated procedure well and left the operating room in good condition. Postop day #1 patient had bradycardia and mild lightheadedness with ambulation. STEPHEN drain had moderate serosanguineous discharge. Diltiazem was placed on hold. She was given education on how to care for STEPHEN drains. Postop day #2. Patient had persistent bradycardia. Potassium was elevated to 6.7, repeat was 6.2. Patient was transferred to telemetry. Oven Baker was consulted. Patient was given 60 g of Kayexalate, IV calcium, D50 and insulin. Postop day #3. Patient still bradycardic, but ambulating well. Potassium normalized. Right mastectomy incision was clean and dry. STEPHEN draining well. She was cleared for discharge home. To follow-up in the office on 05/28/19 for removal of drains. She was given a prescription. Instructions/limitations/ supplies were provided and discussed. PREOPERATIVE DIAGNOSIS: Sarcoma, right breast, malignant phyllodes tumor. POSTOPERATIVE DIAGNOSIS: Sarcoma, right breast, malignant phyllodes tumor. OPERATION PERFORMED: Right modified radical mastectomy. DISPOSITION: Patient was discharged home. DISCHARGE MEDICATIONS: Refer to Discharge Medication List. DISCHARGE INSTRUCTIONS: Follow-up on 05/28/2019 for removal of drains. I have been assigned to complete a discharge summary on this account, I was not involved with the patient's management.--ELIZABETH Hansen Jacqueline Robles NP May 24, 2019 08:44
== END 2019-05-23 14:50 | disposition home or self-care (01) | DRG 582 ==
LOC: SUR 07:55 → 3E 14:38 → 2E 05-22 12:21
PROC: 0HTT0ZZ Resection of Right Breast, Open Approach (ICD-10-PCS; principal; 2019-05-20 10:00)
DX: C50.911 Malignant neoplasm of unspecified site of right female breast (principal); N18.6 End stage renal disease; I12.0 Hypertensive chronic kidney disease with stage 5 chronic kidney disease or end stage renal disease; Z88.6 Allergy status to analgesic agent; R00.1 Bradycardia, unspecified; E87.5 Hyperkalemia; I10 Essential (primary) hypertension
CPT/HCPCS: 36415; 80048; 81003; 82962; 85025; 93005; 94003; 94150; J2250; J2405; J2765